=== PATIENT | male | born 1985 | race African-American/Black ===

== ENCOUNTER 2018-09-09 09:41 | Emergency (ER) | payer MEDICAID ==
[~2018-09-09] VITALS: Ht 180.3 cm; Wt 83.7 kg
[2018-09-09] MEDS ORDERED: ONDANSETRON ODT 8 MG ONE (10:18)
[2018-09-09] MEDS ORDERED: ONDANSETRON ODT 8 MG PO ONE (10:30)
[2018-09-09 10:35] LABS: BASOPHILS # (AUTO) 0.02 x10^3/uL (0-0.1); BASOPHILS % (AUTO) 0 % (0-1); EOSINOPHILS # (AUTO) 0.02 x10^3/uL (0-0.4); EOSINOPHILS % (AUTO) 0 % (1-7); LYMPHOCYTES # (AUTO) 1.76 x10^3/uL (1-3.4); LYMPHOCYTES % (AUTO) 30 % (22-44); MD NO; MEAN CORPUSCULAR HEMOGLOBIN 31.3 pg (27.5-34.5); MEAN CORPUSCULAR HGB CONC 33.9 g/dL (33.2-36.2); MEAN CORPUSCULAR VOLUME 92.5 fL (81-97); MEAN PLATELET VOLUME 8.1 fL (7.4-10.4); MONOCYTES % (AUTO) 12 % (2-9); NEUTROPHILS # (AUTO) 3.42 x10^3/uL (1.8-6.8); NEUTROPHILS % (AUTO) 58 % (42-75); PLATELET COUNT 180 x10^3/uL (130-400); RED BLOOD COUNT 5.72 x10^6/uL (4.38-5.82); RED CELL DISTRIBUTION WIDTH 13.2 % (9.4-14.8)
[2018-09-09 10:41] LABS: CHLORIDE 104 mmol/L (98-107)
[2018-09-09 10:45] LABS: ANION GAP 7 mmol/L (5-15); CALCIUM 8.8 mg/dL (8.5-10.1)
[2018-09-09 10:52] VITALS: BP 136/84
[2018-09-09] MEDS ORDERED: KETOROLAC 30 MG/1 ML ONE (11:55)
[2018-09-09] MEDS ORDERED: KETOROLAC 60 MG/2 ML IM ONE (12:00)
== END 2018-09-09 12:15 | disposition home or self-care (01) ==
LOC: ED 12:13
DX: J06.9 Acute upper respiratory infection, unspecified (principal); R11.10 Vomiting, unspecified; E86.0 Dehydration
CPT/HCPCS: 36415; 71045; 80048; 82040; 85025; 93005; 99285; J1885; Q0162